=== PATIENT | female | born 1960 | race Caucasian/White ===

== ENCOUNTER 2023-08-04 14:58 | Outpatient (CLI) | payer MEDICARE, OTHER | END 2023-08-04 14:59 | disposition home or self-care (01) | LOC: BICMAMMO 14:58 | PROVIDERS: ATTEND Family Medicine | DX: Z12.31 Encounter for screening mammogram for malignant neoplasm of breast (principal); M81.8 Other osteoporosis without current pathological fracture; M85.851 Other specified disorders of bone density and structure, right thigh; M85.852 Other specified disorders of bone density and structure, left thigh; Z80.3 Family history of malignant neoplasm of breast; Z85.43 Personal history of malignant neoplasm of ovary | CPT/HCPCS: 77063; 77067; 77080 ==

== ENCOUNTER 2024-09-08 16:06 | Inpatient (IN) | payer OTHER ==
[~2024-09-08 16:06] MED LIST: Iopamidol-370 76% 500 ML MDV (1 ML CHARGE) ONE
[2024-09-08 16:56] LABS: #Basophils 0.04 10x3/uL (0.0-0.2); %Basophils 0.6 % (0.0-1.0); %Eosinophils 1.7 % (0.0-10.0); %Lymphocytes 40.1 % (21.0-51.0); %Monocytes 7.1 % (0.0-10.0); %Neutrophils 50.1 % (42.0-75.0); Mean Corpuscular HGB CONC 33.3 g/dL (32.0-36.0); Mean Corpuscular Volume 90.1 fL (78.0-98.0); Platelet Count 239 10x3/uL (130-400); RBC Distribution Width 12.3 % (11.5-14.5); Red Blood Cell (RBC) Count 4.33 mill/uL (4.20-5.40)
[2024-09-08 17:12] LABS: ALT (SGPT) 67 U/L (8-55); AST (SGOT) 153 U/L (5-34); Albumin 4.3 g/dL (3.4-4.8); Alkaline Phosphatase 74 U/L (40-110); Anion Gap 13 mmol/L (10-20); BUN (Urea Nitrogen) 24 mg/dL (9.8-20.1); Bilirubin, Total 0.3 mg/dL (0.2-1.2); Calc. Creatinine Clearance 0 mL/min (70-130); Calcium 9.1 mg/dL (7.8-10.44); Carbon Dioxide 27 mmol/L (23-31); Chloride 100 mmol/L (98-107); Estimated GFR 65; Globulin 2.5 g/dL (2.4-3.5); Glucose 138 mg/dL (80-115); Protein, Total 6.8 g/dL (5.8-8.1); Sodium 137 mmol/L (136-145)
[2024-09-08 17:17] LABS: Troponin I Less than 0.010 ng/mL (< 0.028)
[2024-09-08] MEDS ORDERED: Famotidine/PF 20 mg/2ml Vial ONE (17:58)
[2024-09-08] MEDS ORDERED: Potassium Chloride 20 MEQ TAB ONE (17:58)
[2024-09-08 19:10] LABS: Troponin I Less than 0.010 ng/mL (< 0.028)
[2024-09-08 20:02] LABS: #Basophils 0.05 10x3/uL (0.0-0.2); %Basophils 0.6 % (0.0-1.0); %Eosinophils 1.2 % (0.0-10.0); %Monocytes 6.5 % (0.0-10.0); %Neutrophils 67.3 % (42.0-75.0); Hematocrit 40.1 % (36.0-47.0); Hemoglobin 13.8 g/dL (12.0-16.0); Mean Corpuscular HGB CONC 34.4 g/dL (32.0-36.0); Mean Corpuscular Hemoglobin 30.3 pg (27.0-31.0); Mean Corpuscular Volume 87.9 fL (78.0-98.0); Mean Platelet Volume 10.4 fL (7.4-10.4); Platelet Count 244 10x3/uL (130-400); RBC Distribution Width 12.5 % (11.5-14.5); Red Blood Cell (RBC) Count 4.56 mill/uL (4.20-5.40)
[2024-09-08 20:21] LABS: ALT (SGPT) 62 U/L (8-55); AST (SGOT) 102 U/L (5-34); Albumin 4.4 g/dL (3.4-4.8); Alkaline Phosphatase 85 U/L (40-110); Anion Gap 13 mmol/L (10-20); BUN (Urea Nitrogen) 22 mg/dL (9.8-20.1); Bilirubin, Total 0.3 mg/dL (0.2-1.2); Calc. Creatinine Clearance 0 mL/min (70-130); Calcium 9.1 mg/dL (7.8-10.44); Carbon Dioxide 25 mmol/L (23-31); Chloride 101 mmol/L (98-107); Estimated GFR 76; Globulin 2.5 g/dL (2.4-3.5); Glucose 102 mg/dL (80-115); Lipase 41 U/L (8-78); Potassium 3.2 mmol/L (3.5-5.1); Protein, Total 6.9 g/dL (5.8-8.1); Sodium 136 mmol/L (136-145)
[2024-09-08 20:41] LABS: Bacteria/HPF None Seen HPF (None Seen); Bilirubin Negative (Negative); Blood, Urine Negative (Negative); CAUTI Indications for Culture Pelvic or flank pain; Clarity Clear (Clear); Glucose, Urine (Dipstick) Normal (Negative); Ketone, Urine Negative (Negative); Leukocyte Negative Leu/uL (Negative); Nitrite Negative (Negative); Protein, Urine (Dipstick) Negative (Neg-Trace); RBC/HPF 0-3 HPF (0-3); Specific Gravity, Urine 1.029 (1.002-1.036); Squamous Epithelial 0-3 HPF (0-3); Urobilinogen Normal mg/dL (Less than 2); WBC/HPF 0-3 HPF (0-3)
[2024-09-08 20:44] LABS: Urine Culture Reflex No No
[2024-09-08] MEDS ORDERED: Sodium Chloride 0.9% 100 ML ONE (22:06)
[2024-09-08] MEDS ORDERED: Piperacillin/Tazobactam 4.5 GM VIAL ONE (22:06)
[2024-09-08] MEDS ORDERED: Dextrose 50% Abboject 50 ML SYRINGE SLOW IVP PRN (22:18)
[2024-09-08] MEDS ORDERED: Ondansetron PF 4 MG/2 ML Vial IVP PRN (22:18)
[2024-09-08] MEDS ORDERED: Acetaminophen 325 MG TAB PO PRN (22:18)
[2024-09-08] MEDS ORDERED: Glucagon 1 MG/ML KIT IM PRN (22:18)
[2024-09-08] MEDS ORDERED: Dextrose 5% in Water 1,000 ML IV PRN (22:18)
[2024-09-08] MEDS ORDERED: Promethazine HCl 25 MG/ML VIAL IM PRN (22:18)
[2024-09-09] MEDS: Piperacillin/Tazobactam 3.375 GM in Sodium Chloride 0.9% 100 ML IVPB SCH (01:27)
[2024-09-09] MEDS: Sodium Chloride 0.9% 1,000 ML IV SCH (01:27)
[2024-09-09 01:34] VITALS: BMI 23.0
[2024-09-09 03:40] LABS: #Basophils 0.04 10x3/uL (0.0-0.2); %Basophils 0.5 % (0.0-1.0); %Eosinophils 3.5 % (0.0-10.0); %Lymphocytes 40.9 % (21.0-51.0); %Monocytes 9.6 % (0.0-10.0); %Neutrophils 45.1 % (42.0-75.0); Hematocrit 36.9 % (36.0-47.0); Hemoglobin 12.4 g/dL (12.0-16.0); Mean Corpuscular HGB CONC 33.6 g/dL (32.0-36.0); Mean Corpuscular Hemoglobin 29.8 pg (27.0-31.0); Mean Corpuscular Volume 88.7 fL (78.0-98.0); Mean Platelet Volume 10.2 fL (7.4-10.4); Platelet Count 234 10x3/uL (130-400); RBC Distribution Width 12.4 % (11.5-14.5); Red Blood Cell (RBC) Count 4.16 mill/uL (4.20-5.40)
[2024-09-09 04:44] LABS: ALT (SGPT) 46 U/L (8-55); AST (SGOT) 55 U/L (5-34); Albumin 3.9 g/dL (3.4-4.8); Alkaline Phosphatase 49 U/L (40-110); Anion Gap 14 mmol/L (10-20); BUN (Urea Nitrogen) 16 mg/dL (9.8-20.1); Bilirubin, Total 0.5 mg/dL (0.2-1.2); Calc. Creatinine Clearance 58 mL/min (70-130); Calcium 8.6 mg/dL (7.8-10.44); Carbon Dioxide 21 mmol/L (23-31); Chloride 110 mmol/L (98-107); Estimated GFR 78; Globulin 2.4 g/dL (2.4-3.5); Glucose 90 mg/dL (80-115); Potassium 3.8 mmol/L (3.5-5.1); Protein, Total 6.3 g/dL (5.8-8.1); Sodium 141 mmol/L (136-145)
[2024-09-09] MEDS: Famotidine 20 MG TAB PO SCH (09:51)
[2024-09-09] MEDS: Lisinopril 20 MG TAB PO SCH (21:09)
[2024-09-09] MEDS: Hydrochlorothiazide 25 MG TAB PO SCH (21:09)
[2024-09-10 05:27] LABS: #Basophils 0.06 10x3/uL (0.0-0.2); %Basophils 0.9 % (0.0-1.0); %Eosinophils 5.1 % (0.0-10.0); %Lymphocytes 42.9 % (21.0-51.0); %Monocytes 9.4 % (0.0-10.0); %Neutrophils 41.4 % (42.0-75.0); Hematocrit 36.6 % (36.0-47.0); Hemoglobin 12.4 g/dL (12.0-16.0); Mean Corpuscular HGB CONC 33.9 g/dL (32.0-36.0); Mean Corpuscular Hemoglobin 30.5 pg (27.0-31.0); Mean Corpuscular Volume 89.9 fL (78.0-98.0); Mean Platelet Volume 10.1 fL (7.4-10.4); Platelet Count 210 10x3/uL (130-400); RBC Distribution Width 12.3 % (11.5-14.5); Red Blood Cell (RBC) Count 4.07 mill/uL (4.20-5.40)
[2024-09-10 05:43] LABS: Anion Gap 11 mmol/L (10-20); BUN (Urea Nitrogen) 11 mg/dL (9.8-20.1); Calc. Creatinine Clearance 58 mL/min (70-130); Calcium 8.8 mg/dL (7.8-10.44); Carbon Dioxide 25 mmol/L (23-31); Chloride 109 mmol/L (98-107); Estimated GFR 78; Glucose 86 mg/dL (80-115); Potassium 3.9 mmol/L (3.5-5.1); Sodium 141 mmol/L (136-145)
[2024-09-10] MEDS ORDERED: EPINEPHrine 1 MG/ML VIAL ONE (07:01)
[2024-09-10] MEDS ORDERED: Indocyanine Green 25 MG/10 ML VIAL ONE (07:01)
[2024-09-10] MEDS ORDERED: Bupivacaine 0.25% HCL 30 ML VIAL ONE (07:01)
[2024-09-10] MEDS ORDERED: Rocuronium Bromide 10 MG/ML (10ML VIAL) ONE ×2 (07:48→07:49)
[2024-09-10] MEDS ORDERED: fentaNYL PF 100 MCG/2 ML SYRINGE ONE (07:48)
[2024-09-10] MEDS ORDERED: PROPOFOL 20 ML ONE (07:48)
[2024-09-10] MEDS ORDERED: Dexamethasone 20 MG/5 ML VIAL ONE (07:49)
[2024-09-10] MEDS ORDERED: Ondansetron PF 4 MG/2 ML Vial ONE (07:49)
[2024-09-10] MEDS ORDERED: Midazolam HCl 2 mg/2 ml Vial ONE (08:09)
[2024-09-10] MEDS ORDERED: Glycopyrrolate 0.2 MG/ML 5 ML SYRINGE ONE (08:26)
[2024-09-10] MEDS ORDERED: Lidocaine 1% PF 5 ML VIAL ONE (08:27)
[2024-09-10] MEDS ORDERED: PHENYLEPHRINE-NS 100 MCG/ML 10 ML SYRINGE ONE (08:49)
[2024-09-10] MEDS ORDERED: NEOSTIGMINE 3 MG/3 ML SYRINGE ONE (09:24)
[2024-09-10] MEDS ORDERED: Ketorolac Tromethamine 30 MG (1 mL) VIAL ONE (09:26)
[2024-09-10] MEDS ORDERED: HYDROcodone/Acetaminophen 10/325 mg Tablet PO PRN (09:45)
[2024-09-10] MEDS ORDERED: Dextrose 5% in Water 1,000 ML IV PRN (09:45)
[2024-09-10] MEDS ORDERED: Glucagon 1 MG/ML KIT IM PRN (09:45)
[2024-09-10] MEDS ORDERED: Dextrose 50% Abboject 50 ML SYRINGE SLOW IVP PRN (09:45)
[2024-09-10] MEDS ORDERED: Calcium Carbonate 500 MG ChewTAB PO PRN (09:45)
[2024-09-10] MEDS ORDERED: Ondansetron PF 4 MG/2 ML Vial IVP PRN (09:45)
[2024-09-10 11:01] VITALS: BP 149/71; TEMP 97.1
[2024-09-10] MEDS: Lisinopril 20 MG TAB PO SCH (11:38)
[2024-09-10] MEDS: Hydrochlorothiazide 25 MG TAB PO SCH (11:38)
[2024-09-10] MEDS: D5 1/2 NS w/20 mEq KCL 1,000 ML IV SCH (11:40)
[2024-09-10] MEDS: Ketorolac Tromethamine 30 MG (1 mL) VIAL IVP SCH (11:52)
[2024-09-11] MEDS ORDERED: Famotidine 20 MG TAB PO SCH (09:00)
[2024-09-11] MEDS ORDERED: Enoxaparin 30 MG (0.3 mL) SYRINGE SC SCH (09:00)
== END 2024-09-10 14:35 | disposition home or self-care (01) | DRG 419 ==
LOC: ERS 16:06 → SURG B 22:18
PROVIDERS: ADMIT Surgery; ATTEND Surgery
PROC: 0FT44ZZ Resection of Gallbladder, Percutaneous Endoscopic Approach (ICD-10-PCS; principal; 2024-09-10)
PROC: 8E0W4CZ Robotic Assisted Procedure of Trunk Region, Percutaneous Endoscopic Approach (ICD-10-PCS; 2024-09-10)
PROC: BF13YZZ Fluoroscopy of Gallbladder and Bile Ducts using Other Contrast (ICD-10-PCS; 2024-09-10)
DX: K80.00 Calculus of gallbladder with acute cholecystitis without obstruction (principal); Z88.8 Allergy status to other drugs, medicaments and biological substances; Z88.5 Allergy status to narcotic agent; I10 Essential (primary) hypertension; Z91.048 Other nonmedicinal substance allergy status; Z85.43 Personal history of malignant neoplasm of ovary; Z88.1 Allergy status to other antibiotic agents
CPT/HCPCS: 36415; 71045; 74177; 76705; 78226; 80048; 80053; 81001; 83690; 83880; 84484; 85025; 85379; 87428; 88304; 93005; A9537; C1889; J0171; J0665; J1100; J1885; J2250; J2405; J2543; J2704; J3490; J7030; Q9967; S2900